=== PATIENT | female | born 1985 | race Caucasian/White ===

== ENCOUNTER 2016-11-24 21:34 | Emergency (ER) | payer SELFPAY | END 2016-11-24 22:22 | disposition home or self-care (01) | LOC: ER 21:37 | DX: Z53.21 Procedure and treatment not carried out due to patient leaving prior to being seen by health care provider (principal) ==

== ENCOUNTER 2016-11-24 23:54 | Emergency (ER) | payer SELFPAY ==
[~2016-11-24] VITALS: Ht 157.5 cm; Wt 55.3 kg
[2016-11-25 00:13] VITALS: BP 102/62
== END 2016-11-25 00:41 | disposition home or self-care (01) ==
LOC: ER 23:58
DX: F11.23 Opioid dependence with withdrawal (principal); M79.1 Myalgia; R45.1 Restlessness and agitation
CPT/HCPCS: A4606; Z7502; Z7610